=== PATIENT | female | born 1980 | race Caucasian/White ===

== ENCOUNTER 2024-04-01 19:36 | Emergency (ER) | payer OTHER, SELFPAY ==
[2024-04-01 19:46] VITALS: BP 150/104
--- NOTE | 2024-04-01 20:43 | ED.GENMED ---
History of Present Illness
General
Chief Complaint: Heart Rate Problem
Time Seen by Provider: 04/01/24 20:40
History of Present Illness
History of Present Illness:
HPI: Over the past week, the patient has been having palpitations. This is associated with some vague chest discomfort. She states that it EKG last week by her primary care doctor showed some extra beats. She cannot get into see a flooring machine operator
until coming May.
EXAM:
GENERAL: Well appearing in no distress
HEENT: Moist oral mucosa
CARDIOVASCULAR: No murmurs, normal heart rate, regular rhythm, No chest wall tenderness
PULMONARY: No respiratory distress, breath sounds are clear and equal
ABDOMEN: Soft with no peritoneal signs, no tenderness
NEUROLOGIC: Excellent strength all extremities, no coordination deficits
PSYCHIATRIC: Appropriate mental status, normal insight and judgement
EXTREMITIES: Nontender, no edema, moves all extremities equally
SKIN: No rash, no lesions
TIME OF INITIAL ENCOUNTER: 8 PM
NUMBER AND COMPLEXITY OF PROBLEMS ADDRESSED AT THE ENCOUNTER
� Chronic conditions affecting care: No significant past medical history
� Acute Exacerbation and/or Progression of Chronic Illness: This is an acute problem
� Differential Diagnosis includes: Anxiety, ACS very unlikely, high blood pressure
AMOUNT AND/OR COMPLEXITY OF DATA TO BE REVIEWED AND ANALYZED
� I performed an independent evaluation of and my interpretation is:
EKG: Sinus 98, normal axis, no acute ST abnormality, 1 PVC noted
CT:
X-rays:
Laboratory Studies: CBC and chemistries are normal, chemistries and troponin unremarkable
Other:
� Review of other/old records: I looked at old records
� Clinical information was obtained by an independent historian: I spoke to at bedside
� Prescriptions/Medications Considered but not given: Held off on any antihypertensives as she states that she normally has low pressure. Consider beta-duy use to help suppress the PVCs however the patient declines which I
feel is reasonable.
� Further testing considered but not performed:
RISK OF COMPLICATIONS AND/OR MORBIDITY OR MORTALITY OF PATIENT MANAGEMENT
� Social determinants of health affecting care: Lives at home with family
� Discussion with other providers:
� Escalation of care including admission/observation vs risk of discharge considered: The patient was initially hypertensive and borderline tachycardic. She is not certain if the symptoms are related to anxiety. She reports
some vague sensation chest discomfort that she cannot qualify. Her symptoms have been ongoing for a week. There is no acute ST abnormality on the EKG. We talked about the possibly of anxiety. Her blood pressure quickly normalized and she tells
me that she normally has low pressure. On reassessment at 9:30 PM, the patient clearly has symptoms from PVCs. She has already had a Holter monitor. She is to follow-up with cardiology.
Phy Exam
Physical Exam
Physical Exam:
See HPI
Course
Orders/Labs/Results
Orders:
Orders
04/01/24 19:49
Electrocardiogram (*1) Urgent
Reason for Study: Palpitations
EKG- Treatment ONCE
04/01/24 20:50
Basic Metabolic Panel Urgent
Complete Blood Count/With Diff Urgent
Troponin I Urgent
Abnormal Lab Results
04/01/24
20:50
Hct 36.3 L %
(37.0-47.0)
MPV 10.6 H fL
(7.4-10.4)
BUN 21 H mg/dl
(7-17)
04/01/24 20:50
04/01/24 20:50
Vital Signs
Initial and Last Documented VS:
Initial Vital Signs
Temp Pulse Resp BP Pulse Ox
98.1 F 110 20 150/104 100
04/01/24 19:46 04/01/24 19:46 04/01/24 19:46 04/01/24 19:46 04/01/24 19:46
Last Documented Vital Signs
Temp Pulse Resp BP Pulse Ox
98.1 F 90 22 113/80 100
04/01/24 19:46 04/01/24 21:04 04/01/24 21:04 04/01/24 21:04 04/01/24 19:46
*Critical Care Note
Total Time (30-74mins, 75-104mins- exclusive of procedures): Not Applicable
ED Attending Note
-
Portions of this chart may have been created with voice recognition software.� Occasional wrong word or��sound alike� substitutions may have occurred due to the inherent limitations of voice recognition software.
Discharge Plan
Departure
Patient Disposition: Home (Routine Discharge)
Date of Disposition: 04/01/24
Time of Disposition: 21:43
Patient with high blood pressure during this ER visit?: Yes
Discharge Problem:
Frequent unifocal PVCs
Instructions: Ventricular premature beats, Chest Pain DCA Follow Up, BLOOD PRESSURE
Prescriptions:
No Action
No Current Medications
0
Referrals:
Shelly Anderson CRNP [Family Provider] -
Rusty Adame MD [Active] - Follow up in 2-3 days
Activity Restrictions/Additional Instructions:
You have premature ventricular contractions on the monitor for which you are symptomatic. Your initial blood pressure was high however without intervention has normalized. Your basic blood work including troponin was normal. Your thyroid testing
from the other day was normal. Follow-up with cardiology such as Dr. Adame. Return here if worse.
Interventions
Interventions:
*Risk Screen - Suicide Last Done: 04/01/24 19:46
*General Assessment Last Done: 04/01/24 21:02
*Neglect/Abuse Screening Last Done: 04/01/24 19:46
*ED COVID-19 Vaccine History Last Done: 04/01/24 21:02
ED- Cardiac Assessment Last Done: 04/01/24 21:12
ED- Pulmonary Assessment Last Done: 04/01/24 21:12
Discharge Date and Time
Print Language: TURKMEN
[2024-04-01 20:57] LABS: % Basophils 0.8 % (0-2); % Eosinophils 2.5 % (0-6); % Immature Granulocytes 0.2 % (0-0.5); % Lymphocytes 40.9 % (20.5-51.1); % Neutrophils 49.6 % (42.2-75.2); Absolute Eosinophils 0.1 10^3/uL (0-0.7); Absolute Lymphocytes 2.2 10^3/uL (1.2-3.4); Absolute Monocytes 0.3 10^3/uL (0.1-0.6); Absolute Neutrophils 2.6 10^3/uL (1.4-6.5); Hematocrit 36.3 % (37.0-47.0); Hemoglobin 12.6 g/dL (12.0-16.0); Mean Corp Hgb Conc. 34.7 g/dL (33.0-37.0); Mean Corpuscular Hgb 28.6 pg (27.0-31.0); Mean Corpuscular Volume 82.3 fL (81.0-99.0); Mean Platelet Volume 10.6 fL (7.4-10.4); Nucleated Red Blood Cells % 0 %; Platelet Count 214 10^3/uL (130-400); Red Blood Cell Count 4.41 10^6/uL (4.20-5.40); Red Cell Dist. Width 12.8 % (11.5-14.5); White Blood Cell Count 5.3 10^3/uL (4.8-10.8)
[2024-04-01 21:02] VITALS: BMI 21.9
[2024-04-01 21:04] VITALS: BP 113/80
--- NOTE | 2024-04-01 21:04 | EDRN ---
'I feel like I can feel my heart beat outside my chest. Like I went for a run but I'm not running.' Feelings are intermittent. pt called doctor couple weeks ago and was put on a 24 hour heart monitor which was clear. Pt feels symptoms are more
frequent now, probably started about 2 weeks ago. Tonight, pt says she got scared because she could 'feel it in there like I can't catch my breath.' Pt noted it first when she took a walk. Pt was driving and it got worse so she went to urgent
care but they were closed so pt came here instead. No cp, abd pain, n/v, headache, dizziness, fever/cough. Pt adds she noted that she was able to burp last week and thought it might be indigestion. No increased in alcohol/caffeine intake.
[2024-04-01 21:11] LABS: Blood Urea Nitrogen 21 mg/dl (7-17); Calcium 9.5 mg/dl (8.4-10.2); Carbon Dioxide 23 mmol/L (22-30); Chloride 106 mmol/L (98-107); Estimated Creatinine Clearance 78 ml/min; Glucose 99 mg/dl (70-99); Potassium 3.8 mmol/L (3.5-5.1); Sodium 137 mmol/L (135-145); eGFR > 60.00
[2024-04-01 21:22] LABS: Troponin I < 0.012 ng/ml
--- NOTE | 2024-04-01 21:23 | EDRN ---
Occasional premature beat observed on monitor - printed and Dr Simmons informed.
[2024-04-01 21:49] VITALS: BP 120/82
== END 2024-04-01 21:57 | disposition home or self-care (01) ==
LOC: EMR 19:36
PROVIDERS: EMERGENCY PHYSICIAN Emergency Medicine; FAMILY PHYSICIAN Nurse Practitioner Adult Health
DX: I49.3 Ventricular premature depolarization (principal); R07.89 Other chest pain; R03.0 Elevated blood-pressure reading, without diagnosis of hypertension
CPT/HCPCS: 99283; 80048; 84484; 85025; 93005

== ENCOUNTER → 2024-06-26 08:27 | Outpatient (REF) | payer OTHER, SELFPAY | LOC: HWRCS 08:27 | PROVIDERS: ATTENDING PHYSICIAN Internal Medicine Cardiovascular Disease; FAMILY PHYSICIAN Nurse Practitioner Adult Health | DX: I49.3 Ventricular premature depolarization (principal) | CPT/HCPCS: 93306 ==

== ENCOUNTER → 2024-11-28 13:05 | Outpatient (REF) | payer OTHER, SELFPAY | LOC: HWWDC 13:05 | PROVIDERS: ATTENDING PHYSICIAN Obstetrics & Gynecology Gynecology; FAMILY PHYSICIAN Nurse Practitioner Adult Health; PRIMARYCARE PHYSICIAN Family Medicine | DX: Z12.31 Encounter for screening mammogram for malignant neoplasm of breast (principal) | CPT/HCPCS: 77063; 77067 ==